=== PATIENT | female | born 1950 | race African-American/Black ===

== ENCOUNTER 2022-05-19 12:01 | Emergency (ER) | payer OTHER ==
--- OUTSIDE RECORDS SUMMARY | 2022-05-19 12:03 | XMS REPORT | Continuity of Care Document ---
:1950 Author Organization [facility] t Address [address] [place] [address] Care Team Providers Name Role Phone Chelsea Quintero Attending Clinician Unavailable Problems This patient has no known problems. Allergies, Adverse Reactions, Alerts This patient has no known allergies or adverse reactions. Medications This patient has no known medications. Procedures This patient has no known procedures. Encounters Start End Encounter Admission Attending Care Care Encounter Source Date/Time Date/Time Type Type Clinicians Facility Department ID 2022-03-13 Outpatient Quintero, Na STLMLC ST[facility] [id number] 2 Common 10:48:01 [facility] 2021-12-10 Outpatient Quintero, Na STLMLC STLMLC [id number] 2 Common 16:00:03 [facility] 2021-12-09 Outpatient Quintero, Na STLMLC STLMLC [id number] 2 Common 11:23:02 [facility] 2021-10-29 Outpatient Quintero, Na STLMLC STLMLC [id number] 2 Common 14:23:04 [facility] 2021-10-29 Outpatient Quintero, Na STLMLC STLMLC [id number] 2 Common 14:22:24 [facility] 2021-10-29 Outpatient Quintero, Na STLMLC STLMLC [id number] 2 Common 14:13:23 [id number] [facility] 2021-10-29 Outpatient Quintero, Na STLMLC STLMLC [id number] 2 Common 14:12:44 [id number] [facility] 2021-10-29 Outpatient Quintero, Na STLMLC STLMLC [id number] 2 Common 13:11:32 [id number] [facility] 2021-10-29 Outpatient Quintero, Na STLMLC STLMLC [id number] 2 Common 13:10:57 [id number] [facility] 2021-10-29 Outpatient Quintero, Na STLMLC STLMLC [id number] 2 Common 13:07:08 [id number] [facility] 2021-10-29 Outpatient Quintero, Na STLMLC STLMLC [id number] 2 Common 12:39:42 [id number] [facility] 2021-10-29 Outpatient Quintero, Na STLMLC STLMLC [id number] 2 Common 12:38:18 [id number] [facility] 2021-10-29 Outpatient Quintero, Na STLMLC STLMLC [id number] 2 Common 12:36:04 [id number] [facility] 2021-10-29 Outpatient Quintero, Na STLMLC STLMLC [id number] 2 Common 12:31:30 [id number] [facility] 2021-10-29 Outpatient Qunitero, Na STLMLC STLMLC [id number] 2 Common 12:31:17 [id number] [facility] 2021-10-29 Outpatient Quintero, Na STLMLC STLMLC [id number] 2 Common 12:31:09 [id number] [facility] 2021-10-29 Outpatient Quintero, Na STLMLC STLMLC [id number] 2 Common 12:07:02 [id number] [facility] 2021-10-29 Outpatient Quintero, Na STLMLC STLMLC [id number] 2 Common 12:06:23 [id number] [facility] 2021-10-29 Outpatient Quintero, Na STLMLC STLMLC [id number] 2 Common 12:05:50 [id number] [facility] 2021-10-29 Outpatient Quintero, Na STLMLC STLMLC [id number] 2 Common 12:03:53 [id number] [facility] 2022-04-23 2022-04-23 ambulatory STLMLC STLMLC [id number] Common 00:00:00 00:00:00 [facility] 2022-03-17 2022-03-17 ambulatory STLMLC STLMLC [id number] Common 00:00:00 00:00:00 [facility] 2022-01-12 2022-01-12 ambulatory STLMLC STLMLC [id number] Common 00:00:00 00:00:00 [facility] 2021-12-11 2021-12-11 ambulatory STLMLC STLMLC [id number] Common 00:00:00 00:00:00 [facility] 2021-12-11 2021-12-11 ambulatory STLMLC STLMLC [id number] Common 00:00:00 00:00:00 [facility] 2021-12-10 2021-12-10 ambulatory STLMLC STLMLC [id number] Common 00:00:00 00:00:00 [facility] 2021-11-03 2021-11-03 ambulatory STLMLC STLMLC [id number] Common 00:00:00 00:00:00 [facility] 2021-09-11 2021-09-11 ambulatory STLMLC STLMLC [id number] Common 00:00:00 00:00:00 [facility] 2021-08-15 2021-08-15 ambulatory STLMLC STLMLC [id number] Common 00:00:00 00:00:00 [facility] 2021-08-14 2021-08-14 ambulatory STLMLC STLMLC [id number] Common 00:00:00 00:00:00 [facility] 2021-07-23 2021-07-23 Outpatient [facility]LMLC STLMLC [id number] Common 00:00:00 00:00:00 [facility] 2021-06-10 2021-06-10 Outpatient STLMLC STLMLC [id number] Common 00:00:00 00:00:00 [facility] 2021-05-14 2021-05-14 Outpatient STLMLC STLMLC [id number] Common 00:00:00 00:00:00 [facility] 2021-03-11 2021-03-11 Outpatient STLMLC STLMLC [id number] Common 00:00:00 00:00:00 [facility] 2021-02-26 2021-02-26 Outpatient [facility]C STL[facility]C [id number] Common 00:00:00 00:00:00 [facility] 2021-01-30 2021-01-30 Outpatient STLMLC STLMLC [id number] Common 00:00:00 00:00:00 [facility] 2020-12-18 2020-12-18 Outpatient STLMLC STL[facility]C [id number] Common 00:00:00 00:00:00 [facility] 2020-12-13 2020-12-13 Outpatient STLMLC STLMLC [id number] Common 00:00:00 00:00:00 [facility] 2020-12-13 2020-12-13 Outpatient [facility]LMLC STLMLC [id number] Common 00:00:00 00:00:00 [facility] 2020-12-09 2020-12-09 Outpatient [facility]LMLC STLMLC [id number] Common 00:00:00 00:00:00 [facility] 2020-12-04 2020-12-04 Outpatient [facility]C STLMLC [id number] Common 00:00:00 00:00:00 [facility] 2020-11-22 2020-11-22 Outpatient [facility]LMLC STLMLC [id number] Common 00:00:00 00:00:00 [facility] 2020-11-08 2020-11-08 Outpatient [facility]LMLC STLMLC [id number] Common 00:00:00 00:00:00 [facility] 2020-08-22 2020-08-22 Outpatient [facility]LMLC STLMLC [id number] Common 00:00:00 00:00:00 [facility] 2020-08-22 2020-08-22 Outpatient [facility]LMLC STLMLC [id number] Common 00:00:00 00:00:00 [facility] 2020-08-20 2020-08-20 Outpatient STLMLC STLMLC [id number] Common 00:00:00 00:00:00 [facility] 2020-08-08 2020-08-08 Outpatient STLMLC STLMLC [id number] Common 00:00:00 00:00:00 [facility] Results This patient has no known results.
[2022-05-19] MEDS ORDERED: KETOROLAC 30 MG/ML INJ ONE (12:21)
[2022-05-19] MEDS ORDERED: TRAMADOL HCL 50 MG TAB ONE (12:21)
--- NOTE | 2022-05-19 13:35 | RAD REPORT ---
EXAM DESCRIPTION: RAD - Foot Right 3 View - 05/19/2022 1:27 pm CLINICAL HISTORY: Right foot pain FINDINGS: No fracture or dislocation is seen Large spurs extend off of the inferior and posterior aspects of the calcaneus. Mild hallux valgus deformity
--- NOTE | 2022-05-19 13:48 | EDPHYS ---
Physician Documentation [facility] Name: Emily Thurman Age: 71 yrs Sex: Female : 1950 Arrival Date: 05/19/2022 Time: 12:03 Bed Waiting Private MD: Chelsea Quintero ED Physician Omar Peralta HPI: 05/19 12:21 This 71 yrs old Black Female presents to ER via Wheelchair with complaints of R Heel jl9 Pain. Patient reports that she has been doing physical therapy recently and may have overextended it. . 12:21 Onset: The symptoms/episode began/occurred 1 week(s) ago. Associated signs and jl9 symptoms: Pertinent negatives:. Modifying factors: The patient symptoms are alleviated by remaining still, the patient symptoms are aggravated by movement. Historical: - Allergies: 12: No Known Allergies; iw - PSHx: 12: Knee Replacement - Left; Back; Shoulder - Left; iw - Immunization history:: Adult Immunizations up to date. - Social history:: Smoking status: Patient denies any tobacco usage or history of. ROS: 12:22 Constitutional: Negative for fever, chills, and weight loss, Eyes: Negative for injury, jl9 pain, redness, and discharge, ENT: Negative for injury, pain, and discharge, Neck: Negative for injury, pain, and swelling, Cardiovascular: Negative for chest pain, palpitations, and edema, Respiratory: Negative for shortness of breath, cough, wheezing, and pleuritic chest pain, Abdomen/GI: Negative for abdominal pain, nausea, vomiting, diarrhea, and constipation, Back: Negative for injury and pain, : Negative for injury, bleeding, discharge, and swelling. 12:22 Skin: Negative for injury, rash, and discoloration, Neuro: Negative for headache, weakness, numbness, tingling, and seizure, Psych: Negative for depression, anxiety, suicide ideation, homicidal ideation, and hallucinations, Allergy/Immunology: Negative for hives, rash, and allergies, Endocrine: Negative for neck swelling, polydipsia, polyuria, polyphagia, and marked weight changes, Hematologic/Lymphatic: Negative for swollen nodes, abnormal bleeding, and unusual bruising. 12:22 MS/extremity: Positive for pain, of the right foot. Exam: 12:23 Constitutional: This is a well developed, well nourished patient who is awake, alert, jl9 and in no acute distress. Head/Face: Normocephalic, atraumatic. Eyes: Pupils equal round and reactive to light, extra-ocular motions intact. Lids and lashes normal. Conjunctiva and sclera are non-icteric and not injected. Cornea within normal limits. Periorbital areas with no swelling, redness, or edema. ENT: Mucous membranes moist. Neck: Trachea midline, no thyromegaly or masses palpated, and no cervical lymphadenopathy. Supple, full range of motion without nuchal rigidity, or vertebral point tenderness. No Meningismus. Chest/axilla: Normal chest wall appearance and motion. Nontender with no deformity. No lesions are appreciated. Cardiovascular: Regular rate and rhythm with a normal S1 and S2. No gallops, murmurs, or rubs. Normal PMI, no JVD. No pulse deficits. Respiratory: Lungs have equal breath sounds bilaterally, clear to auscultation and percussion. No rales, rhonchi or wheezes noted. No increased work of breathing, no retractions or nasal flaring. Abdomen/GI: Soft, non-tender, with normal bowel sounds. No distension or tympany. No guarding or rebound. No evidence of tenderness throughout. Back: No spinal tenderness. No costovertebral tenderness. Full range of motion. Skin: Warm, dry with normal turgor. Normal color with no rashes, no lesions, and no evidence of cellulitis. 12:23 Musculoskeletal/extremity: Extremities: grossly normal except: ROM: limited active range of motion due to pain, Circulation is intact in all extremities. Sensation intact. Weight bearing: able to fully bear weight, Tendon exam: Vital Signs: 12:05 BP 157 / 94; Pulse 76; Resp 16; Temp 97.8(TE); Pulse Ox 97% on R/A; Weight 98.88 kg; iw Height 5 ft. 2 in. (157.48 cm); Pain 10/10; 12:05 Body Mass Index 39.87 (98.88 kg, 157.48 cm) iw MDM: 12:09 Patient medically screened. [facility] 12:23 Data reviewed: vital signs, nurses notes. 9 13:47 Data reviewed: radiologic studies. Counseling: I had a detailed discussion with the 9 patient and/or guardian regarding: the historical points, exam findings, and any diagnostic results supporting the discharge/admit diagnosis, radiology results, the need for outpatient follow up. 05/19 12:09 Order name: Foot Right 3 View XRAY; Complete Time: 13:47 jl9 Administered Medications: 12:17 Drug: traMADol 50 mg Route: PO; iw 13:15 Follow up: Response: No adverse reaction; Pain is decreased iw 12:18 Drug: Ketorolac 60 mg Route: IM; Site: left deltoid; iw 12:30 Follow up: Response: No adverse reaction iw Disposition: 21:24 Co-signature as Attending Physician, Omar Peralta DO I agree with the assessment and ms3 plan of care. Disposition Summary: 05/19/22 13:48 Discharge Ordered Location: Home jl9 Condition: Stable jl9 Diagnosis - Calcaneal spur, right foot jl9 Followup: jl9 - With: Private Physician - When: 1 - 2 days - Reason: Recheck today's complaints, Continuance of care, Re-evaluation by your physician Discharge Instructions: - Discharge Summary Sheet jl9 - Heel Spur jl9 Forms: - Medication Reconciliation Form jl9 - Thank You Letter jl9 - Antibiotic Education jl9 - Prescription Opioid Use jl9 Prescriptions: - Ibuprofen 600 mg Oral Tablet - take 1 tablet by ORAL route every 6 hours As needed take with food; 30 tablet; jl9 Refills: 0, Product Selection Permitted - Tylenol-Codeine #3 300 mg-30 mg Oral - take 1 tablet by ORAL route every 8 hours As needed; 12 tablet; Refills: 0, jl9 Product Selection Permitted Signatures: Dispatcher [employer] Isatu Morin, BUSTER RN Omar Glasgow DO DO ms3 Morales Baker jl9
--- NOTE | 2022-05-19 13:48 | ER ---
Nurse's Notes [facility] Name: Emily Thurman Age: 71 yrs Sex: Female : 1950 Arrival Date: 05/19/2022 Time: 12:03 Bed Waiting Private MD: Chelsea Quintero Diagnosis: Calcaneal spur, right foot Presentation: 05/19 12:05 Chief complaint: Right heel pain that started last week during PT. Coronavirus screen: iw At this time, the client does not indicate any symptoms associated with coronavirus-19. Ebola Screen: No symptoms or risks identified at this time. Initial Sepsis Screen: Does the patient meet any 2 criteria? No. Patient's initial sepsis screen is negative. Does the patient have a suspected source of infection? No. Patient's initial sepsis screen is negative. Risk Assessment: Do you want to hurt yourself or someone else? Patient reports no desire to harm self or others. Onset of symptoms was May 12, 2022. 12:05 Method Of Arrival: Wheelchair iw 12:05 Acuity: BELINDA 4 iw Historical: - Allergies: 12:09 No Known Allergies; iw - PSHx: 12:09 Knee Replacement - Left; Back; Shoulder - Left; iw - Immunization history:: Adult Immunizations up to date. - Social history:: Smoking status: Patient denies any tobacco usage or history of. Screenin:11 Abuse screen: Denies threats or abuse. Denies injuries from another. Nutritional iw screening: No deficits noted. Tuberculosis screening: No symptoms or risk factors identified. Vital Signs: 12:05 BP 157 / 94; Pulse 76; Resp 16; Temp 97.8(TE); Pulse Ox 97% on R/A; Weight 98.88 kg; iw Height 5 ft. 2 in. (157.48 cm); Pain 10/10; 12:05 Body Mass Index 39.87 (98.88 kg, 157.48 cm) iw ED Course: 12:03 Patient arrived in ED. mr 12:03 Chelsea Quintero MD is Private Physician. mr 12:04 [facility] jl9 12:04 Omar Peralta DO is Attending Physician. jl9 12:05 Arm band placed on. iw 12:09 Triage completed. iw 13:29 Foot Right 3 View XRAY In Process Unspecified. EDMS 14:02 Isatu Garrison, RN is Primary Nurse. iw Administered Medications: 12:17 Drug: traMADol 50 mg Route: PO; iw 13:15 Follow up: Response: No adverse reaction; Pain is decreased iw 12:18 Drug: Ketorolac 60 mg Route: IM; Site: left deltoid; iw 12:30 Follow up: Response: No adverse reaction iw Outcome: 13:48 Discharge ordered by MD. flores 14:10 Discharged to home via wheelchair, with family. iw 14:10 Condition: good 14:10 Discharge instructions given to patient, family, Instructed on discharge instructions, follow up and referral plans. medication usage, Demonstrated understanding of instructions, follow-up care, medications, Prescriptions given X 2. 14:11 Patient left the ED. iw Signatures: Dispatcher [employer] EDNM Rhonda Ramon mr Isatu Garrison, RN RN Morales Flynn9
[2022-05-19 14:21] VITALS: BP 157/94; TEMP 97.8; O2SAT 97
== END 2022-05-19 14:11 | disposition home or self-care (01) ==
LOC: ER 12:01
DX: M77.31 Calcaneal spur, right foot (principal); Z96.612 Presence of left artificial shoulder joint; Z96.652 Presence of left artificial knee joint
CPT/HCPCS: 96372; 99283